=== PATIENT | male | born 1980 | race Caucasian/White ===

== ENCOUNTER 2022-09-21 10:06 | Emergency (ER) | payer OTHER ==
--- NOTE | 2022-09-21 12:01 | RAD REPORT ---
EXAM DESCRIPTION: CT - Head Brain Wo Cont - 09/21/2022 11:53 am CLINICAL HISTORY: headache COMPARISON: No comparisons TECHNIQUE: Axial 5 mm thick images of the head were obtained without IV contrast. All CT scans are performed using dose optimization technique as appropriate and may include automated exposure control or mA/KV adjustment according to patient size. FINDINGS: No intracranial hemorrhage, mass, edema or shift of mid-line structures. No acute infarcti on changes seen. No abnormal extra-axial fluid collections. Ventricles are normal. Mastoid air cells are clear. Paranasal sinuses are clear except for a trace amount of fluid in the ri ght maxillary sinus. No acute bony findings. IMPRESSION: No mass, edema or acute intracranial finding. Trace fluid in the right maxillary sinus.
[2022-09-21 12:08] LABS: Urine Blood Negative (Negative); Urine Glucose Negative (Negative); Urine Protein Negative (Negative); Urine pH 6.5 (5.0-7.0)
[2022-09-21 12:21] LABS: Barbiturates NEGATIVE (NEGATIVE); Benzodiazepines NEGATIVE (NEGATIVE); Cocaine NEGATIVE (NEGATIVE); METHAMPHETAM POSITIVE (NEGATIVE); Methadone NEGATIVE (NEGATIVE); Opiates NEGATIVE (NEGATIVE); Phencyclidine NEGATIVE (NEGATIVE); THC Cannibis NEGATIVE (NEGATIVE)
[2022-09-21 12:34] LABS: Absolute Lymphocytes (CBC) 2.1 K/uL (0.7-4.9); Hematocrit 40.1 % (39.6-49.0); Lymphocytes % 11.8 % (15.3-44.8); MCV 90.5 fL (80-100); MPV 6.8 fL (7.6-11.3); RBC Red Blood Cell Count 4.43 M/uL (4.33-5.43)
[2022-09-21 12:52] LABS: ALT/SGPT 25 U/L (12-78); AST/SGOT 11 U/L (15-37); Albumin 3.6 g/dL (3.4-5.0); Alkaline Phosphatase 58 U/L (45-117); BUN Blood Urea Nitrogen 13 mg/dL (7-18); Bicarbonate 28 mmol/L (21-32); Bilirubin Total 0.2 mg/dL (0.2-1.0); Glomerular Filtration Rate 113 ml/min (=/>90); Glucose Level 104 mg/dL (74-106); Potassium 3.4 mmol/L (3.5-5.1); Protein, Total 6.7 g/dL (6.4-8.2); Sodium Level 142 mmol/L (136-145)
[2022-09-21 12:58] LABS: Bilirubin Direct < 0.1 mg/dL (0-0.2)
--- NOTE | 2022-09-21 13:22 | ER ---
Nurse's Notes [facility] Name: Star Yost Jr Age: 41 yrs Sex: Male : 1980 Arrival Date: 09/21/2022 Time: 10:11 Bed 23 Private MD: Diagnosis: Other stimulant abuse Presentation: 09/21 10:56 Chief complaint: Patient states: 17 days ago I used heroin and meth laced with fentanyl [facility] which is my usual since I was 16 years old. But [facility] (when I last used) and was released yesterday I went to the [facility] to get MAT for help and they sent me here to rule out a stroke. My arms are super heavy, my head is pounding. Coronavirus screen: Vaccine status: Patient reports receiving the 1st dose of the Covid vaccine. Client denies travel out of the [place] in the last 14 days. Ebola Screen: Patient negative for fever greater than or equal to 101.5 degrees Fahrenheit, and additional compatible Ebola Virus Disease symptoms Patient denies exposure to infectious person. Patient denies travel to an Ebola-affected area in the 21 days before illness onset. Initial Sepsis Screen: Does the patient meet any 2 criteria? No. Patient's initial sepsis screen is negative. Does the patient have a suspected source of infection? No. Patient's initial sepsis screen is negative. Risk Assessment: Do you want to hurt yourself or someone else? Patient reports no desire to harm self or others. 10:56 Method Of Arrival: Ambulatory [facility] 10:56 Acuity: MARIE 3 jh5 Triage Assessment: 11:06 General: Appears in no apparent distress. uncomfortable, slender, unkempt, emaciated, [facility] Behavior is calm, cooperative, anxious. Pain: Complains of pain in headache. 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 - Social history:: Smoking status: Patient uses street drugs, heroin, Methamphetamine (Meth) fentanyl , IV drugs, heroin, cocaine. Screenin:20 Abuse screen: Denies threats or abuse. Denies injuries from another. Nutritional tp1 screening: No deficits noted. Tuberculosis screening: No symptoms or risk factors identified. Fall Risk None identified. Assessment: 11:05 General: Appears in no apparent distress. comfortable, Behavior is calm, cooperative. tp1 Pain: Complains of pain in bilateral arms Pain does not radiate. Pain currently is 5 out of 10 on a pain scale. Quality of pain is described as aching. Neuro: Level of Consciousness is awake, alert, obeys commands, Oriented to person, place, time, situation, Reports black dots in field of vision . Cardiovascular: Patient's skin is warm and dry. Cardiovascular: Denies chest pain. Respiratory: Airway is patent Respiratory effort is even, unlabored, Denies shortness of breath. GI: Abdomen is flat, distended, Patient currently denies diarrhea, nausea, vomiting. : No signs and/or symptoms were reported regarding the genitourinary system. EENT: No signs and/or symptoms were reported regarding the EENT system. Derm: Skin is pink, warm \T\ dry. Musculoskeletal: Circulation, motion, and sensation intact. 12:00 Reassessment: Patient appears in no apparent distress at this time. No changes from tp1 previously documented assessment. Patient and/or family updated on plan of care and expected duration. Pain level reassessed. Patient is alert, oriented x 3, equal unlabored respirations, skin warm/dry/pink. 13:00 Reassessment: Patient appears in no apparent distress at this time. No changes from tp1 previously documented assessment. Patient is alert, oriented x 3, equal unlabored respirations, skin warm/dry/pink. Patient denies pain at this time. 13:10 Reassessment: see CSSRS sheet. tp1 Vital Signs: 10:56 BP 140 / 119; Pulse 106; Resp 18; Temp 98.7; Pulse Ox 100% ; Weight 81.65 kg; Height 6 5 ft. 2 in. (187.96 cm); Pain 0/10; 11:30 BP 119 / 95; Pulse 101; Resp 16; Pulse Ox 95% on R/A; tp1 13:21 BP 141 / 92; Pulse 105; Resp 16; Pulse Ox 100% on R/A; tp1 10:56 Body Mass Index 23.11 (81.65 kg, 187.96 cm) [facility] ED Course: 10:11 Patient arrived in ED. as 10:59 Mickail, Tawanda, PA is PHCP. [facility] 11:00 Eddy Rivera MD is Attending Physician. [facility] 11:06 Triage completed. [facility] 11:06 Arm band placed on right wrist. 5 11:15 Patient has correct armband on for positive identification. Bed in low position. Call tp1 light in reach. 11:15 Client placed on continuous cardiac and pulse oximetry monitoring. NIBP monitoring tp1 applied. 11:21 Estela Dior, RN is Primary Nurse. tp1 11:23 EKG done. tp1 11:54 CT Head Brain wo Cont In Process Unspecified. EDMS 11:57 Urine Drug Screen Sent. em1 12:26 Inserted saline lock: 22 gauge in right upper arm, using aseptic technique. Blood iw collected. 13:19 No provider procedures requiring assistance completed. IV discontinued, PT self DC IV. tp1 no bleeding noted. Administered Medications: No medications were administered Medication: 13:22 VIS not applicable for this client. tp1 Outcome: 13:22 Discharge ordered by MD. [facility] 13:34 Discharged to home ambulatory, with family. tp1 13:34 Condition: good 13:34 Discharge instructions given to patient, family, Instructed on discharge instructions, follow up and referral plans. medication usage, Demonstrated understanding of instructions, follow-up care, medications, Prescriptions given X 1. 13:35 Patient left the ED. tp1 Signatures: Dispatcher [employer] [facility] Tawanda Mercer PA PA jmm Martinez, Amelia as Williams, Irene, Luis Kelley RN [facility] Roma Jamil RN RN [facility] Estela Dior, NAHUM RN tp1
--- NOTE | 2022-09-21 13:23 | EDPHYS ---
Physician Documentation [facility] Name: Star Yost Jr Age: 41 yrs Sex: Male : 1980 Arrival Date: 09/21/2022 Time: 10:11 Bed 23 Private MD: ED Physician Eddy Rivera HPI: 09/21 11:24 This 41 yrs old Male presents to ER via Ambulatory with complaints of withdrawal. [facility] 11:24 Onset: The symptoms/episode began/occurred gradually, 1 day(s) ago. This is a 41 year jmm old male that presents to the ED with complaints of headache. Patient states having a bad episode after taking heroine and meth last night. patient states being ready to quit. Denies chest pain, sob, abdominal pain. . 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 - Social history:: Smoking status: Patient uses street drugs, heroin, Methamphetamine (Meth) fentanyl , IV drugs, heroin, cocaine. ROS: 11:24 Constitutional: Negative for fever, chills, and weight loss, Cardiovascular: Negative jmm for chest pain, palpitations, and edema, Respiratory: Negative for shortness of breath, cough, wheezing, and pleuritic chest pain. 11:24 Neuro: Positive for headache. 11:24 All other systems are negative. Exam: 11:24 Head/Face: atraumatic. Eyes: EOMI, no conjunctival erythema appreciated ENT: Moist jmm Mucus Membranes Neck: Trachea midline, Supple Chest/axilla: Normal chest wall appearance and motion. Cardiovascular: Regular rate and rhythm. No edema appreciated Respiratory: Normal respirations, no respiratory distress appreciated Abdomen/GI: Non distended Back: Normal ROM Skin: General appearance color normal MS/ Extremity: Moves all extremities, no obvious deformities appreciated, no edema noted to the lower extremities Neuro: Awake and alert Psych: Behavior is normal, Mood is normal, Patient is cooperative and pleasant 11:24 Constitutional: The patient appears alert, awake, anxious, uncomfortable. Vital Signs: 10:56 BP 140 / 119; Pulse 106; Resp 18; Temp 98.7; Pulse Ox 100% ; Weight 81.65 kg; Height 6 jh5 ft. 2 in. (187.96 cm); Pain 0/10; 11:30 BP 119 / 95; Pulse 101; Resp 16; Pulse Ox 95% on R/A; tp1 13:21 BP 141 / 92; Pulse 105; Resp 16; Pulse Ox 100% on R/A; tp1 10:56 Body Mass Index 23.11 (81.65 kg, 187.96 cm) [facility] MDM: 11:24 Patient medically screened. [facility] 13:20 Data reviewed: vital signs, nurses notes. Counseling: I had a detailed discussion with joe the patient and/or guardian regarding: the historical points, exam findings, and any diagnostic results supporting the discharge/admit diagnosis, lab results, the need for outpatient follow up, to return to the emergency department if symptoms worsen or persist or if there are any questions or concerns that arise at home. ED course: Patient is alert and non toxic in appearance in the ED. No neuro deficits. patient has arranged follow up with rehab. patient otherwise given strict return precaution. patient understood and agrees with the plan of care. . 09/21 11:24 Order name: Acetaminophen; Complete Time: 13:16 [facility] 09/21 11:24 Order name: Basic Metabolic Panel; Complete Time: 13:16 [facility] 09/21 11:24 Order name: CBC with Diff; Complete Time: 12:45 [facility] 09/21 11:24 Order name: ETOH Level; Complete Time: 13:32 [facility] 09/21 11:24 Order name: Hepatic Function; Complete Time: 13:16 [facility] 09/21 11:24 Order name: Salicylate; Complete Time: 13:16 [facility] 09/21 11:24 Order name: Urine Drug Screen; Complete Time: 12:22 [facility] 09/21 11:24 Order name: EKG; Complete Time: 11:25 [facility] 09/21 11:24 Order name: EKG - Nurse/Tech; Complete Time: 11:41 [facility] 09/21 11:24 Order name: IV Saline Lock; Complete Time: 12:30 [facility] 09/21 11:36 Order name: CT Head Brain wo Cont; Complete Time: 12:12 [facility] 09/21 12:08 Order name: Urine Dipstick-Ancillary; Complete Time: 12:12 [facility] 09/21 11:24 Order name: Labs collected and sent; Complete Time: 12:30 [facility] 09/21 11:24 Order name: Suicide Screening ([place]); Complete Time: 13:18 jm 09/21 11:24 Order name: Urine Dipstick-Ancillary (obtain specimen); Complete Time: 11:57 jm Administered Medications: No medications were administered Disposition: 09/22 07:26 Co-signature as Attending Physician, Eddy Rivera MD I agree with the assessment and rt plan of care. Disposition Summary: 09/21/22 13:22 Discharge Ordered Location: Home [facility] Condition: Stable jm Diagnosis - Other stimulant abuse [facility] Followup: [facility] - With: Private Physician - When: 2 - 3 days - Reason: Recheck today's complaints, Continuance of care, Re-evaluation by your physician Discharge Instructions: - Discharge Summary Sheet [facility] - Methamphetamines Use Disorder [facility] Forms: - Medication Reconciliation Form [facility] - Thank You Letter [facility] - Antibiotic Education jm - Prescription Opioid Use [facility] Prescriptions: - naltrexone 50 mg Oral tablet - take 1 tablet by ORAL route once daily; 30 tablet; Refills: 0, Product [facility] Selection Permitted Signatures: Dispatcher [employer] Tawanda Adkins PA PA Roma Maloney, RN RN jh5 Eddy Rivera MD MD rt
[2022-09-21 13:40] VITALS: TEMP 98.7
[2022-09-21 13:42] VITALS: BP 141/92; O2SAT 100
--- NOTE | 2022-09-22 13:51 | EKG ---
Test Date: 2022-09-21 Test Time: 11:16:21 Industrial Cook: JOSH MEASUREMENT RESULTS: Intervals: Rate: 101 AL: 130 QRSD: 102 QT: 356 QTc: 461 Ada: P: 68 AL: 130 QRS: 74 T: 64 INTERPRETIVE STATEMENTS: Sinus tachycardia Otherwise normal ECG No previous ECG available for comparison Electronically Signed On 09-22-22 13:47:58 MANAGER UNIT by Julien James
== END 2022-09-21 13:35 | disposition home or self-care (01) ==
LOC: ER 10:06
DX: F15.10 Other stimulant abuse, uncomplicated (principal)
CPT/HCPCS: 36415; 70450; 80048; 80076; 80307; 80320; 80329; 81003; 85025; 93005; 99284